=== PATIENT | male | born 2000 | race Caucasian/White ===

== ENCOUNTER → 2022-02-06 15:48 | Outpatient (CLI) | payer SELFPAY | PROVIDERS: Visit Provider Nurse Practitioner Family | DX: Z02.4 Encounter for examination for driving license (principal) ==

== ENCOUNTER 2022-10-09 17:49 | Emergency (ER) | payer BC, SELFPAY ==
[2022-10-09 18:00] VITALS: BP 147/84; PULSE 95; RESP 20; TEMP 37.4; O2SAT 97; BMI 32.3
--- NOTE | 2022-10-09 18:15 | EXP.UTC ---
Discharge Plan Disposition Patient Disposition: Home, Self-Care Condition: Good Prescriptions Prescriptions: New benzonatate 100 mg capsule 100 mg PO TID PRN (Reason: cough) Qty: 30 0RF fluticasone propionate [Flonase Allergy Relief] 50 mcg/actuation spray,suspension 1 spray intranasal DAILY Qty: 16 0RF Rx Instructions: administer into each nostril azithromycin [Zithromax Z-Kwasi] 250 mg tablet See Rx Instructions .ROUTE .COMPLEX 5 Days Qty: 6 0RF Rx Instructions: For 250 mg dose pack: take 500 mg today (day 1), then 250 mg for 4 days (days 2-5) methylprednisolone [Medrol (Kwasi)] 4 mg tablets,dose pack See Rx Instructions .Route .COMPLEX 6 Days Qty: 21 0RF Rx Instructions: taper pack; Referrals Follow up/Referrals: Provider,Referral, MD [Primary Care Provider] - See instructions Activity Restrictions/Add. Instructions Additional Instructions/Restrictions: *Monitor Temp, Over the counter Motrin or Tylenol as directed/as needed Tylenol every 4 hours and Motrin every 6 hours (as long as your family doctor has told you that you can take it) for fever or pain. and straight to ER if unable to lower temp less than 101.0 after medication given *Warm salt water gargles may help to soothe the throat *Throat Lozenges? *Warm fluids like tea with honey may help to soothe the throat? *Sleep elevated *Humidifier/Vaporizer *Flonase 2 sprays in each nostril daily but be aware that it may take 2-3 days before you notice improvement *Bromfed may cause drowsiness. Know how it effects you (your child) before driving, caring for small child, or sending your child to school. Not other antihistamines/allergy medications while taking bromfed Your throat swab was sent for culture. Those results are typically sent to your primary care. Be sure to follow up in 2-3 days with your family doctor/primary care physician if no improvement so they can review those result and treat if necessary. If you don?t have a primary care doctor, I recommend you get one but in the mean time, you will have to return to a walk in clinic Follow up IMMEDIATELY for new or worsening symptoms or no Noticeable improvement over the next 48-72 hours. 911 for difficulty breathing or swallowing Clinical Impressions Clinical Impression: Pharyngitis Qualifiers: Pharyngitis/tonsillitis etiology: unspecified etiology Qualified Code(s): J02.9 - Acute pharyngitis, unspecified Stand Alone Forms Stand Alone Forms: Work/School Release Instructions Patient Instructions: Sore Throat, Azithromycin Discharge ED Provider: Roxanne Thorne [facility] General Stated complaint: sore throat, cough Mode of Arrival: Ambulatory Source of Information: Patient Limitations: No Limitations Time Seen by Provider: 10/09/22 18:16 Description of Symptoms (Recalled from Triage Doc. by RN): PATIENT C/O COUGH FOR APPROX 2 MONTHS AND SORE THROAT FOR PAST FEW DAYS HEENT Symptoms (Recalled from RN notes): Yes Resp Symptoms (Recalled from RN notes): Yes Skin Symptoms (Recalled from RN notes): No MS Symptoms (Recalled from RN notes): No Functional Status (Recalled from RN notes): WNL History of Present Illness Provider Complaint: Patient states that he had a cold a few months ago and has had lingering cough ever since but for the last few days he has been having sore throat and feels like he may have strep throat so he came in to get checked Related Data Previous Rx's Medication Instructions Recorded azithromycin 250 mg tablet See Rx Instructions PO .COMPLEX 5 10/09/22 (Zithromax Z-Kwasi) days #6 tabs benzonatate 100 mg capsule 100 mg PO TID PRN cough #30 caps 10/09/22 fluticasone propionate 50 1 spray intranasal DAILY #16 grams 10/09/22 mcg/actuation nasal spray,suspension (Flonase Allergy Relief) methylprednisolone 4 mg tablets in See Rx Instructions .Route 10/09/22 a dose pack (Medrol (Kwasi)) .COMPLEX 6 days #21 tabs Allergies A
[2022-10-09 18:26] LABS: UTC Strep Screen (Rapid) Negative (Negative)
[2022-10-09 18:28] VITALS: BP 147/84; PULSE 95; RESP 20; TEMP 37.4; O2SAT 97
== END 2022-10-09 18:31 | disposition home or self-care (01) ==
PROVIDERS: Emergency Provider Nurse Practitioner
DX: J02.9 Acute pharyngitis, unspecified (principal)
CPT/HCPCS: 87880; 99212; G0463

== ENCOUNTER 2023-01-28 18:53 | Emergency (ER) | payer BC, SELFPAY ==
[2023-01-28 19:00] VITALS: BP 146/95; PULSE 69; RESP 22; TEMP 37; O2SAT 100; BMI 28.8
--- NOTE | 2023-01-28 19:17 | EXP.UTC ---
Discharge Plan Disposition Patient Disposition: Home, Self-Care Condition: Good Prescriptions Prescriptions: New polymyxin B sulf-trimethoprim [Polytrim] 10,000 unit- 1 mg/mL drops 2 drp ophthalmic (eye) Q6H 7 Days Qty: 10 0RF Rx Instructions: left eye while awake; do not exceed 6 doses in 24 hours No Action benzonatate 100 mg capsule 100 mg PO TID PRN (Reason: cough) Qty: 30 0RF fluticasone propionate [Flonase Allergy Relief] 50 mcg/actuation spray,suspension 1 spray intranasal DAILY Qty: 16 0RF Rx Instructions: administer into each nostril azithromycin [Zithromax Z-Kwasi] 250 mg tablet See Rx Instructions .ROUTE .COMPLEX 5 Days Qty: 6 0RF Rx Instructions: For 250 mg dose pack: take 500 mg today (day 1), then 250 mg for 4 days (days 2-5) methylprednisolone [Medrol (Kwasi)] 4 mg tablets,dose pack See Rx Instructions .Route .COMPLEX 6 Days Qty: 21 0RF Rx Instructions: taper pack; Referrals Follow up/Referrals: Provider,Referral, MD [Primary Care Provider] - See instructions Activity Restrictions/Add. Instructions Additional Instructions/Restrictions: Wash hands well before and after applying drops to eye Clean matting and drainage from eyes with warm water and baby shampoo Use drops as directed Follow up with Eye Doctor if no improvement or any worsening of symptoms Clinical Impressions Clinical Impression: Conjunctivitis Stand Alone Forms Stand Alone Forms: Work/School Release Instructions Patient Instructions: Conjunctivitis, DI for Conjunctivitis, Polymyxin B and Trimethoprim Ophthalmic Discharge ED Provider: Roxanne Thorne [facility] General Stated complaint: LT eye irritated Mode of Arrival: Ambulatory Source of Information: Patient Limitations: No Limitations Time Seen by Provider: 01/28/23 19:10 Description of Symptoms (Recalled from Triage Doc. by RN): PATIENT C/O SWELLING AND REDNESS TO LEFT EYE SINCE THIS MORNING HEENT Symptoms (Recalled from RN notes): Yes Resp Symptoms (Recalled from RN notes): No Skin Symptoms (Recalled from RN notes): No MS Symptoms (Recalled from RN notes): No Functional Status (Recalled from RN notes): WNL History of Present Illness Provider Complaint: Patient states that he woke up this morning having drainage, redness and mild swelling in his left eye since this morning States that he has been clearing drainage and stringy like drainage from the eye and this evening it was getting worse so he came in Denies injury Denies FB Related Data Previous Rx's Medication Instructions Recorded azithromycin 250 mg tablet See Rx Instructions PO .COMPLEX 5 10/09/22 (Zithromax Z-Kwasi) days #6 tabs benzonatate 100 mg capsule 100 mg PO TID PRN cough #30 caps 10/09/22 fluticasone propionate 50 1 spray intranasal DAILY #16 grams 10/09/22 mcg/actuation nasal spray,suspension (Flonase Allergy Relief) methylprednisolone 4 mg tablets in See Rx Instructions .Route 10/09/22 a dose pack (Medrol (Kwasi)) .COMPLEX 6 days #21 tabs polymyxin B sulfate 10,000 2 drp ophthalmic (eye) Q6H 7 days 01/28/23 unit-trimethoprim 1 mg/mL eye #10 mL drops (Polytrim) Allergies Allergy/AdvReac Type Severity Reaction Status Date / Time No Known Allergies Allergy Verified 10/09/22 18:14 Worker's Comp Is this a Worker's Comp case?: No [facility] Disclaimer: The information contained in this section may have been updated after the patient was seen, as this information can be updated by other users. Medical History (Updated 01/28/23 @ 19:22 by Roxanne Thorne APRN) No significant past medical history Social History (Updated 10/09/22 @ 18:28 by Roxanne Thorne APRN) Smoking Status: Unknown if ever smoked alcohol intake: never current occupational status: other Travel in the last 8 weeks: None ROS Obtained: Yes All systems reviewed & no additional complaints except as documented and Yes Systems reviewed as appropriate & no sara
[2023-01-28 19:22] VITALS: BP 146/95; PULSE 69; RESP 22; TEMP 37; O2SAT 100
== END 2023-01-28 19:25 | disposition home or self-care (01) ==
PROVIDERS: Emergency Provider Nurse Practitioner
DX: H10.32 Unspecified acute conjunctivitis, left eye (principal)
CPT/HCPCS: 99212; 99214; G0463